=== PATIENT | female | born 1965 ===

== ENCOUNTER 2017-09-16 11:12 | Emergency (ER) | payer OTHER, BC ==
[2017-09-16 11:26] VITALS: O2SAT 100; BMI 22.4
[2017-09-16] MEDS ORDERED: Albuterol-Ipratrop 3 mg / 0.5 (3 ml) UD IH STA (11:27)
--- NOTE | 2017-09-16 11:31 | ED PDOC ---
Arrival/HPI - General Chief Complaint: Shortness Of Breath Time Seen by Provider: 09/16/17 11:21 Historian: Patient - History of Present Illness Time/Duration: Other (Yesterday) Symptom Onset: Gradual Symptom Course: Unchanged Severity Level: Mild Activities at Onset: Light Associated Symptoms (Text): 09/16/17 11:28 Patient was at work yesterday when she developed mild shortness of breath. No cough congestion or URI. No chest pain. No fever. History of asthma. She was seen by her PMD this morning and directed to the emergency department. Patient had a cholecystectomy several weeks ago. No leg pain or edema. She does not appear ill or in any distress. No respiratory distress. No accessory muscle use. No tachypnea. No tachycardia. No retractions. Pulse oximetry is 100% on room air. She is concerned that she went back to work too soon. Past Medical History - Infectious Disease Hx of Infectious Diseases: None - Cardiac Hx Cardiac Disorders: Yes Hx Hypertension: Yes - Pulmonary Hx Respiratory Disorders: No - Neurological Hx Neurological Disorder: No - HEENT Hx HEENT Disorder: No - Renal Hx Renal Disorder: No - Endocrine/Metabolic Hx Endocrine Disorders: No - Hematological/Oncological Hx Blood Transfusions: No Hx Blood Transfusion Reaction: No - Integumentary Hx Dermatological Disorder: No - Musculoskeletal/Rheumatological Hx Falls: No - Gastrointestinal Hx Gastrointestinal Disorders: No - Genitourinary/Gynecological Hx Genitourinary Disorders: No - Psychiatric Hx Psychophysiologic Disorder: No Hx Substance Use: No - Surgical History Hx Cholecystectomy: Yes - Anesthesia Hx Anesthesia: Yes Hx Anesthesia Reactions: No Hx Malignant Hyperthermia: No Family/Social History - Physician Review Nursing Documentation Reviewed: Yes Family/Social History: Unknown Family HX Smoking Status: Never Smoked Hx Alcohol Use: No Hx Substance Use: No Allergies/Home Meds Allergies/Adverse Reactions: Allergies No Known Allergies Allergy (Verified 09/16/17 11:27) Home Medications: Home Meds Medication Instructions Recorded Confirmed Simvastatin [Zocor] 20 mg PO DAILY 08/26/17 09/16/17 Albuterol HFA [Ventolin HFA 90 2 puff IH PRN PRN 09/16/17 09/16/17 mcg/actuation (8 g)] Review of Systems - Physician Review All systems were reviewed & negative as marked: Yes - Review of Systems Constitutional: Fatigue. absent: Fevers Respiratory: SOB. absent: Cough, Sputum, Wheezing Cardiovascular: absent: Chest Pain, Palpitations, Syncope Gastrointestinal: absent: Abdominal Pain, Diarrhea, Nausea, Vomiting Genitourinary Female: absent: Dysuria, Frequency, Hematuria Neurological: absent: Headache, Dizziness Physical Exam Vital Signs Temp Pulse Resp BP Pulse Ox 09/16/17 12:03 61 19 124/72 100 09/16/17 11:55 98.0 F 09/16/17 11:29 20 100 09/16/17 11:25 63 20 172/91 H 100 Temperature: Afebrile Blood Pressure: Hypertensive Pulse: Regular Respiratory Rate: Normal Appearance: Positive for: Well-Appearing, Non-Toxic, Comfortable Pain Distress: None Mental Status: Positive for: Alert and Oriented X 3 - Systems Exam Head: Present: Atraumatic, Normocephalic Pupils: Present: PERRL Extroacular Muscles: Present: EOMI Conjunctiva: Present: Normal Ears: Present: NORMAL TM, Normal Canal. No: Erythema, TM Bulging Mouth: Present: Moist Mucous Membranes Pharnyx: No: ERYTHEMA, EXUDATE, TONSILS ENLARGED Neck: Present: Normal Range of Motion Respiratory/Chest: Present: Clear to Auscultation, Good Air Exchange. No: Respiratory Distress, Accessory Muscle Use, Wheezes, Rales, Retracting, Rhonchi , Tachypneic Cardiovascular: Present: Regular Rate and Rhythm, Normal S1, S2. No: Murmurs Abdomen: Present: Normal Bowel Sounds. No: Tenderness, Distention, Peritoneal Signs, Rebound, Guarding Upper Extremity: Present: Normal Inspection. No: Cyanosis, Edema Lower Extremity: Present: Normal Inspection. No: Edema Neurological: Present: GCS=15, CN II-XII Intact, Speech Normal, Motor Func Grossly Intact Skin: Present: Warm, Dry, Normal Color. No: Rashes Psychiatric: Present: Alert, Oriented x 3, Normal Insight, Normal Concentration Medical Decision Making ED Course and Treatment: 09/16/17 11:33 EKG shows normal sinus rhythm rate approximately [address] or T-wave changes 09/16/17 13:35 Lungs remain clear. Workup is negative including CTA. Pulse oximetry remains 100 % on room air. Patient exhibits no respiratory distress. She complains of shortness of breath and will be given an albuterol prior to discharge. - Lab Interpretations Lab Results: 09/16/17 11:41 09/16/17 11:41 Lab Results 09/16/17 11:41: Sodium 142, Potassium 4.0, Chloride 108 H, Carbon Dioxide 23, Anion Gap 15, BUN 11, Creatinine 0.6 L, Est GFR ( Amer) > 60, Est GFR ( Non-Af Amer) > 60, Random Glucose 98, Calcium 9.8, Total Bilirubin 1.0, AST 32, ALT 52, Alkaline Phosphatase 130 H D, Lactate Dehydrogenase 618, Total Creatine Kinase 78, Troponin I < 0.01, NT-Pro-B Natriuret Pep 128, Total Protein 8.4 H, Albumin 4.6, Globulin 3.9, Albumin/Globulin Ratio 1.2 09/16/17 11:41: D-Dimer, Quantitative 256 H 09/16/17 11:41: WBC 7.1 D, RBC 4.75, Hgb 14.3 D, Hct 42.4, MCV 89.3, MCH 30.1 , MCHC 33.7, RDW 12.8, Plt Count 407, MPV 10.0, Gran % 58.1, Lymph % (Auto) 27.1 , [place] % (Auto) 5.2, Eos % (Auto) 9.0 H, Baso % (Auto) 0.6, Gran # 4.14, Lymph # 1.9, [place] # 0.4, Eos # 0.6, Baso # 0.04 I have reviewed the lab results: Yes - RAD Interpretation Radiology Orders: 09/16/17 11:27 CHEST PORTABLE [RAD] Stat 09/16/17 12:27 ANGIO CHEST PE PROTOCOL [CT] Stat CT scan of the chest as read by the radiologist shows no acute findings. Customer Marketing Manager: Radiologist - Medication Orders Current Medication Orders: Discontinued Medications Albuterol Sulfate (Albuterol 0.5% Inhal Neva (5 Mg/ Ml) 20 Ml) 2.5 mg IH ONCE STA Stop: 09/16/17 13:36 Last Admin: 09/16/17 13:45 Dose: 2.5 mg Albuterol/Ipratropium (Duoneb 3 Mg/0.5 Mg (3 Ml) Ud) 3 ml IH ONCE STA Stop: 09/16/17 11:28 Last Admin: 09/16/17 11:47 Dose: 3 ml Disposition/Present on Arrival - Present on Arrival Any Indicators Present on Arrival: No History of DVT/PE: No History of Uncontrolled Diabetes: No Urinary Catheter: No History of Decub. Ulcer: No History Surgical Site Infection Following: None - Disposition Have Diagnosis and Disposition been Completed?: Yes Diagnosis: Dyspnea Disposition: HOME/ ROUTINE Disposition Time: 13:28 Patient Plan: Discharge Condition: GOOD Discharge Instructions (ExitCare): Dyspnea (ED) Additional Instructions: Follow-up with PMD. Follow-up in the ER as needed. Prescriptions: Albuterol HFA [Ventolin HFA 90 mcg/actuation (8 g)] 2 puff IH [id number] #1 puff Referrals: Obi Jimenez MD [Primary Care Provider] - Follow up with primary Forms: [email or web address] [facility] (Togolese), WORK NOTE
[2017-09-16 11:52] LABS: BASO # 0.04 K/mm3 (0.0-2.0); BASO % 0.6 % (0.0-3.0); EOS # 0.6 (0.0-0.7); GRAN # 4.14 (1.4-6.5); GRAN % 58.1 % (50.0-68.0); HEMATOCRIT 42.4 % (36.0-48.0); LYMPH # 1.9 (1.2-3.4); LYMPH % 27.1 % (22.0-35.0); MEAN CELL VOLUME 89.3 fl (80.0-105.0); MEAN CORPUSCULAR HEMOGLOBIN 30.1 pg (25.0-35.0); MEAN CORPUSCULAR HGB CONC 33.7 g/dl (31.0-37.0); MONO # 0.4 (0.1-0.6); MONO % 5.2 % (1.0-6.0); RED CELL DISTRIBUTION WIDTH 12.8 % (11.5-14.5); WHITE BLOOD COUNT 7.1 10^3/ul (4.5-11.0)
[2017-09-16 11:59] VITALS: TEMP 98
[2017-09-16 12:04] VITALS: BP 124/72; PULSE 61; RESP 19
[2017-09-16 12:12] LABS: ALB/GLOB RATIO 1.2 (1.1-1.8); ALKALINE PHOSPHATASE 130 U/L (38-126); ALT/SGPT 52 U/L (7-56); AST/SGOT 32 U/L (14-36); BLOOD UREA NITROGEN 11 mg/dL (7-21); CALCIUM 9.8 mg/dL (8.4-10.5); CARBON DIOXIDE 23 mmol/L (21-33); CHLORIDE 108 mmol/L (98-107); GFR AFRICAN-AMERICAN > 60; GLUCOSE,RANDOM 98 mg/dL (70-110); SODIUM 142 mmol/L (132-148); TOTAL PROTEIN 8.4 g/dL (5.8-8.3)
[2017-09-16 12:14] LABS: TROPONIN I < 0.01 ng/mL
[2017-09-16] MEDS ORDERED: Iodixanol 320 MG/ML 100 ML BOTTLE IV ONE (12:33)
--- NOTE | 2017-09-16 13:26 | CT ---
PROCEDURE: CT Chest with contrast (Pulmonary Angiogram) HISTORY: elevated dimer COMPARISON: None available. TECHNIQUE: Axial computed tomography images were obtained of the chest in the pulmonary arterial phase of enhancement. Coronal and sagittal reformatted images were created and reviewed. Intravenous contrast dose: 100 cc of Visipaque Radiation dose: Total exam DLP = 228 mGy-cm. This CT exam was performed using one or more of the following dose reduction techniques: Automated exposure control, adjustment of the mA and/or kV according to patient size, and/or use of iterative reconstruction technique. FINDINGS: PULMONARY ARTERIES: Unremarkable. No pulmonary embolism. AORTA: No acute findings. No thoracic aortic aneurysm. LUNGS: Unremarkable. No nodule, mass or pulmonary consolidation. PLEURAL SPACES: Unremarkable. No effusion or pneuomothorax. HEART: Unremarkable. No cardiomegaly. No significant pericardial effusion. LYMPH NODES: No lymphadenopathy. BONES, CHEST WALL: Unremarkable. No fracture or destructive lesion OTHER FINDINGS: Unremarkable. IMPRESSION: Unremarkable CT pulmonary angiogram. No pulmonary embolus.
[2017-09-16] MEDS ORDERED: Albuterol 0.5% Inhal Sol (5 mg/ ml) 20 ml IH STA (13:35)
--- NOTE | 2017-09-16 13:45 | RAD ---
HISTORY: sob COMPARISON: No prior. FINDINGS: LUNGS: No active pulmonary disease. PLEURA: No significant pleural effusion identified, no pneumothorax apparent. CARDIOVASCULAR: Normal. OSSEOUS STRUCTURES: No significant abnormalities. VISUALIZED UPPER ABDOMEN: Normal. OTHER FINDINGS: None. IMPRESSION: No active disease.
--- NOTE | 2017-09-16 19:01 | CARD ---
APPROVED REPORT EKG Measurement Heart [id number] <Conclusion> Normal sinus rhythm Normal ECG
== END 2017-09-16 14:13 | disposition home or self-care (01) ==
LOC: ED 11:12
DX: R06.00 Dyspnea, unspecified (principal); I10 Essential (primary) hypertension
CPT/HCPCS: 71010; 71275; 80053; 82550; 83615; 83880; 84484; 85025; 85378; 93005; 99285; Q9967